=== PATIENT | male | born 1980 | race American Indian/Alaskan Native ===

== ENCOUNTER 2021-03-24 20:22 | Emergency (ER) | payer SELFPAY ==
--- NOTE | 2021-03-29 13:20 | Electrocardiograph Report ---
[facility] Test Date: 2021-03-24 Test Time: 21:50:43 Pat Name: KRYSTIAN ALBERT Department: Room: Gender: M [employer]: NAYELI : 1980 Requested By: MINOR BOCANEGRA Order Number: [id number] Reading MD: Lucio Andersen Measurements Intervals [place] Rate: 110 P: 21 VA: 157 QRS: 15 QRSD: 75 T: 30 QT: 301 QTc: 408 Interpretive Statements Sinus tachycardia Probable anteroseptal infarct, old No previous ECG available for comparison Electronically Signed On 03-29-2021 13:20:36 EDT by Lucio Andersen
== END 2021-03-24 21:31 | disposition left against medical advice (07) ==
LOC: ED 20:22
DX: H53.8 Other visual disturbances (principal); R42 Dizziness and giddiness; Z53.21 Procedure and treatment not carried out due to patient leaving prior to being seen by health care provider
CPT/HCPCS: 93005